=== PATIENT | female | born 1940 | race Caucasian/White ===

== ENCOUNTER 2022-04-04 09:52 | Emergency (ER) | payer OTHER ==
[2022-04-04 10:06] VITALS: BP 160/60; PULSE 95; TEMP 98; BMI 24.5
[2022-04-04] MEDS ORDERED: IBUPROFEN 400 MG TABLET (FP) PO ONE ×2 (10:41→10:47)
== END 2022-04-04 11:45 | disposition home or self-care (01) ==
LOC: FER 09:52
DX: M79.622 Pain in left upper arm (principal); W01.0XXA Fall on same level from slipping, tripping and stumbling without subsequent striking against object, initial encounter
CPT/HCPCS: 73030-TC-LT-FY; 73070-TC-LT-FY; 99284-25

== ENCOUNTER 2022-09-02 04:06 | Day surgery (SDC) | payer OTHER ==
[2022-08-29 13:42] VITALS: BMI 22.6
[2022-09-02] MEDS ORDERED: ROPIVACAINE HCL 0.5% 30ML VIAL ONE (11:02)
[2022-09-02] MEDS ORDERED: ONDANSETRON 4 MG/2 ML VIAL IVPUSH PRN (11:13)
[2022-09-02] MEDS ORDERED: LACTATED RINGERS SOLUTION 1,000 ML IV SCH (11:15)
[2022-09-02] MEDS ORDERED: MIDAZOLAM HCL 2 MG/2 ML SINGLE DOSE VIAL ONE (11:15)
[2022-09-02] MEDS ORDERED: PROPOFOL 20 ML ONE (11:46)
[2022-09-02] MEDS ORDERED: LIDOCAINE HCL 2% 100 MG/5 ML DISP.SYRIN ONE (12:26)
[2022-09-02] MEDS ORDERED: ceFAZolin SODIUM 1 GM VIAL ONE (12:53)
[2022-09-02] MEDS ORDERED: DEXAMETHASONE SOD PHOSPHATE 4 MG/1 ML VIAL ONE (13:08)
[2022-09-02] MEDS ORDERED: GLYCOPYRROLATE 0.2 MG/1 ML VIAL ONE ×2 (13:15→13:17)
[2022-09-02 16:08] VITALS: RESP 18
[2022-09-02 17:33] VITALS: BP 131/65; PULSE 85; TEMP 97
== END 2022-09-02 17:30 | disposition home or self-care (01) ==
LOC: JASU-SURG 04:06
PROVIDERS: ATTEND Orthopaedic Surgery
PROC: 0LM24ZZ Reattachment of Left Shoulder Tendon, Percutaneous Endoscopic Approach (ICD-10-PCS; 2022-09-02)
PROC: 0RNK4ZZ Release Left Shoulder Joint, Percutaneous Endoscopic Approach (ICD-10-PCS; 2022-09-02)
PROC: 0PBB4ZZ Excision of Left Clavicle, Percutaneous Endoscopic Approach (ICD-10-PCS; principal; 2022-09-02 13:04)
PROC: 0RBK4ZZ Excision of Left Shoulder Joint, Percutaneous Endoscopic Approach (ICD-10-PCS; 2022-09-02 13:04)
DX: M75.42 Impingement syndrome of left shoulder (principal); M75.122 Complete rotator cuff tear or rupture of left shoulder, not specified as traumatic; M19.012 Primary osteoarthritis, left shoulder
CPT/HCPCS: 94760; C1713